=== PATIENT | male | born 1960 | race Caucasian/White ===

== ENCOUNTER → 2017-07-02 | Outpatient (CLI) | payer BC, OTHER | END | disposition home or self-care (01) | LOC: RADMRIMAIN 06:15 | PROVIDERS: ATTEND Family Medicine | DX: Z53.9 Procedure and treatment not carried out, unspecified reason (principal) ==

== ENCOUNTER 2021-07-19 07:31 | Day surgery (SDC) | payer BC, OTHER ==
[2021-07-17 13:36] VITALS: BMI 47.9
[~2021-07-19 07:31] MED LIST: LACTATED RINGERS 1,000 ML IV SCH; LIDOCAINE 1% (10MG/ML) FOR IV START INTRADERMA PRN
--- NOTE | 2021-07-19 08:05 | P.GSHP ---
History of Present Illness H&P Date: 07/19/21 Chief Complaint: History of colon polyps This a 60-year-old male presents today for colonoscopy. He has a history of colon polyps. Past Medical History Past Medical History: Diabetes Mellitus, Deep Vein Thrombosis (DVT), GERD/Reflux, Hypertension, Sleep Apnea/CPAP/BIPAP Additional Past Medical History / Comment(s): frequent bowel movements, History of Any Multi-Drug Resistant Organisms: None Reported Past Surgical History: Cholecystectomy, Orthopedic Surgery Additional Past Surgical History / Comment(s): left knee arthroscopy, Past Anesthesia/Blood Transfusion Reactions: No Reported Reaction Smoking Status: Current every day smoker - Past Family History Father Family Medical History: Cancer Medications and Allergies Home Medications Medication Instructions Recorded Confirmed Type Cholecalciferol [Vitamin D3 (25 50 mcg PO DAILY 07/17/21 07/17/21 History Mcg = 1000 Iu)] Doxazosin [Cardura] 2 mg PO HS 07/17/21 07/17/21 History Glimepiride [Amaryl] 4 mg PO DAILY 07/17/21 07/17/21 History Insulin Detemir [Levemir Flextouch 130 units SQ HS 07/17/21 07/17/21 History Pen] Liraglutide [Victoza 3-Felipe] 1.8 mg SQ QA 07/17/21 07/17/21 History Losartan Potassium [Cozaar] 100 mg PO HS 07/17/21 07/17/21 History Metoprolol Succinate (ER) [Toprol 100 mg PO HS 07/17/21 07/17/21 History Xl] Omeprazole [PriLOSEC] 20 mg PO AC-BID 07/17/21 07/17/21 History Pioglitazone [Actos] 45 mg PO HS 07/17/21 07/17/21 History Turmeric Root Extract [Turmeric] 1,053 mg PO BID 07/17/21 07/17/21 History amLODIPine [Norvasc] 10 mg PO DAILY 07/17/21 07/17/21 History hydroCHLOROthiazide 25 mg PO DAILY 07/17/21 07/17/21 History Allergies Allergy/AdvReac Type Severity Reaction Status Date / Time No Known Allergies Allergy Verified 07/19/21 08:04 Surgical - Exam - General well developed, well nourished, no distress - Eyes PERRL - ENT normal pinna - Neck no masses - Respiratory normal expansion - Cardiovascular Rhythm: regular - Abdomen Abdomen: soft, non tender Assessment and Plan Assessment: History of colon polyps. We'll perform colonoscopy
[2021-07-19] MEDS ORDERED: PROPOFOL 10 MG/ML 20 ML VIAL IV ONE (08:10)
[2021-07-19] MEDS ORDERED: LIDOCAINE 1% INJ 10MG/ML (20 ML MDV) ONE (08:10)
[2021-07-19 08:12] LABS: Glucose,Whole Blood 175 mg/dL (75-99)
[2021-07-19 08:13] VITALS: TEMP 97.8
--- NOTE | 2021-07-19 08:26 | P.OP ---
Date of Procedure: 07/19/21 Preoperative Diagnosis: History of colon polyps Postoperative Diagnosis: Mild diverticulosis Procedure(s) Performed: Colonoscopy Anesthesia: MAC Surgeon: Steve Cowan Pathology: none sent Condition: stable Disposition: PACU Description of Procedure: Patient's placed on the endoscopy table in the lateral position. He received IV sedation. Digital rectal exam was performed which revealed nothe possible colonoscope was then placed patient anus passed throughout the entire colon. The ileocecal valve was visualized. The cecum appeared normal. The ascending and transverse colon appeared normal. In the descending and sigmoid colon there is mild diverticular changes. There were no polyps seen in the sigmoid colon or descending colon. Scope was brought back the rectum this appeared normal. Scope withdrawn for patient.
[2021-07-19 09:02] VITALS: BP 113/64; PULSE 77; RESP 16
== END 2021-07-19 09:00 | disposition home or self-care (01) ==
LOC: ORWHC2ENDO 07:31
PROVIDERS: ATTEND Surgery
DX: K57.90 Diverticulosis of intestine, part unspecified, without perforation or abscess without bleeding (principal); Z86.010 Personal history of colon polyps; I10 Essential (primary) hypertension; K21.9 Gastro-esophageal reflux disease without esophagitis; G47.33 Obstructive sleep apnea (adult) (pediatric); F17.200 Nicotine dependence, unspecified, uncomplicated
CPT/HCPCS: 45378; J2001; J2704